=== PATIENT | female | born 1950 | race Caucasian/White ===

== ENCOUNTER 2019-07-12 12:26 | Emergency (ER) | payer MEDICARE, MEDICAID ==
[~2019-07-12] VITALS: Ht 149.9 cm; Wt 64.9 kg
[2019-07-12] MEDS ORDERED: ALBUTEROL FS 2.5 MG/3 ML VIAL.NEB ONE ×2 (12:32→13:19)
[2019-07-12] MEDS ORDERED: IPRATROPIUM NEB FS 0.5 MG/2.5 ML AMPUL.NEB ONE ×2 (12:33→13:19)
--- NOTE | 2019-07-12 12:40 | NUR ---
MOHIT, C/O SOB X SINCE WEDNESDAY. PATIENT A/OX4, COUGHING, SHORT OF BREATH, SPO2 94% IN ROOM AIR, RT AT BEDSIDE. DR. FERGUSON AT BEDSIDE FOR EVAL. NEEDS ATTENDED. KEPT COMFORTABLE.
[2019-07-12] MEDS ORDERED: predniSONE 20 MG TABLET ONE (12:49)
[2019-07-12 12:52] LABS: BASOPHILS % (AUTO) 0.4 % (0.0-2.0); EOSINOPHILS % (AUTO) 0.6 % (0.0-6.0); HEMATOCRIT 46 % (33-45); HEMOGLOBIN 15.7 g/dL (11.5-14.8); LYMPHOCYTES # (AUTO) 1.7 /CMM (0.8-4.8); LYMPHOCYTES % (AUTO) 22.8 % (20.0-44.0); MEAN CORPUSCULAR HGB CONC 34 g/dl (31.0-36.0); MEAN CORPUSCULAR VOLUME 99 fL (82-100); MONOCYTES # (AUTO) 0.8 /CMM (0.1-1.30); MONOCYTES % (AUTO) 10.8 % (2.0-12.0); NEUTROPHILS # (AUTO) 4.9 /CMM (1.8-8.9); NEUTROPHILS % (AUTO) 65.4 % (43.0-81.0); PLATELET COUNT (AUTO) 128 /CMM (150-450); RED BLOOD CELL COUNT(AUTO) 4.66 MIL/uL (4.0-5.2); WHITE BLOOD COUNT (AUTO) 7.5 K/uL (4.3-11.0)
[2019-07-12] MEDS ORDERED: ALBUTEROL FS 2.5 MG/3 ML VIAL.NEB NEB ONE ×2 (13:00)
[2019-07-12] MEDS ORDERED: IPRATROPIUM NEB FS 0.5 MG/2.5 ML AMPUL.NEB NEB ONE ×2 (13:00)
[2019-07-12] MEDS ORDERED: predniSONE 20 MG TABLET PO ONE (13:00)
[2019-07-12 13:22] LABS: CALCIUM, SERUM 9.4 mg/dL (8.5-10.1); CREATININE 0.8 mg/dL (0.6-1.3); POTASSIUM 4.3 mmol/L (3.5-5.1)
[2019-07-12 14:00] VITALS: BP 130/82
[2019-07-12] MEDS ORDERED: LEVOFLOXACIN (750 MG) 750 MG TABLET PO STA (14:04)
[2019-07-12] MEDS ORDERED: LEVOFLOXACIN (750 MG) 750 MG TABLET ONE (14:07)
--- NOTE | 2019-07-12 14:13 | NUR ---
PATIENT STATED SHE FEELS BETTER. DENIES SOB. BREATHING EVEN AND UNLABORED, NO SOB NOTED. Patient discharged to home in stable condition. Written and verbal after care instructions given. Patient verbalizes understanding of instruction.
== END 2019-07-12 14:16 | disposition home or self-care (01) ==
LOC: ER 12:28
DX: J18.9 Pneumonia, unspecified organism (principal); J45.909 Unspecified asthma, uncomplicated; R00.0 Tachycardia, unspecified; Z88.0 Allergy status to penicillin; Z88.6 Allergy status to analgesic agent; Z88.5 Allergy status to narcotic agent; Z88.2 Allergy status to sulfonamides; Z88.8 Allergy status to other drugs, medicaments and biological substances
CPT/HCPCS: 36415; 71046; 80048; 85025; 94640 ×4; 99285; J7512

== ENCOUNTER 2019-10-26 06:00 | Emergency (ER) | payer MEDICARE, MEDICAID ==
[~2019-10-26] VITALS: Ht 149.9 cm; Wt 52.2 kg
[2019-10-26 06:00] VITALS: BP 159/98
--- NOTE | 2019-10-26 06:22 | NUR ---
BIBS ON WHEELCHAIR. TO ER BED 7. AAOX4. BREATHING EVEN AND UNLABORED. USES WHEELCHAIR TO AMBULATE. C/O ORAL SORES, SORE THROAT AND PRODUCTIVE COUGH SINCE WEDNESDAY. PT VERBALIZES THAT THE PAIN IN HER MOUTH FEELING LIKE BURNING, UNDER THE TONGUE AND BUCAL AREA. PT IS ALSO C/O SOB BUT NOT IN RESP DISTRESS UPON RECEIVING PT. PT WAS NOTED WUTH BILAT WHEEZING. MD WAS AT BEDSIDE FOR EVAL. AWAITING ORDERS
[2019-10-26] MEDS ORDERED: ACETAMINOPHEN 325 MG TABLET PO ONE (06:30)
[2019-10-26] MEDS ORDERED: DEXAMETHASONE SOD PHOSPHATE 10 MG/ML VIAL IM ONE (06:30)
[2019-10-26] MEDS ORDERED: ALBUTEROL FS 2.5 MG/0.5 ML VIAL.NEB NEB ONE (06:30)
[2019-10-26] MEDS ORDERED: IPRATROPIUM NEB FS 0.5 MG/2.5 ML AMPUL.NEB NEB ONE (06:30)
[2019-10-26] MEDS ORDERED: DEXAMETHASONE SOD PHOSPHATE 10 MG/ML VIAL ONE (06:45)
[2019-10-26] MEDS ORDERED: ACETAMINOPHEN ES 500 MG TABLET ONE (06:45)
[2019-10-26] MEDS ORDERED: IPRATROPIUM NEB FS 0.5 MG/2.5 ML AMPUL.NEB ONE (06:53)
[2019-10-26] MEDS ORDERED: ALBUTEROL FS 2.5 MG/0.5 ML VIAL.NEB ONE (06:53)
--- NOTE | 2019-10-26 07:48 | NUR ---
Patient discharged to home in stable condition. Written and verbal after care instructions given. Patient verbalizes understanding of instruction. Pt left the ER on wheelchair.
== END 2019-10-26 07:49 | disposition home or self-care (01) ==
LOC: ER 06:05
DX: J45.909 Unspecified asthma, uncomplicated (principal); J06.9 Acute upper respiratory infection, unspecified; Z85.850 Personal history of malignant neoplasm of thyroid; Z60.2 Problems related to living alone; Z88.0 Allergy status to penicillin; Z88.8 Allergy status to other drugs, medicaments and biological substances; Z88.5 Allergy status to narcotic agent; Z88.2 Allergy status to sulfonamides
CPT/HCPCS: 94640; 96372; 99283; J1100

== ENCOUNTER 2020-12-29 12:12 | Emergency (ER) | payer MEDICARE, OTHER ==
[~2020-12-29] VITALS: Ht 149.9 cm; Wt 68.0 kg
[2020-12-29] MEDS ORDERED: IPRATROPIUM NEB FS 0.5 MG/2.5 ML AMPUL.NEB NEB ONE (12:30)
[2020-12-29] MEDS ORDERED: ALBUTEROL FS 2.5 MG/3 ML VIAL.NEB NEB ONE (12:30)
[2020-12-29] MEDS ORDERED: methylPREDNISolone SOD SUCC 125 MG/2ML VIAL IM ONE (12:30)
--- NOTE | 2020-12-29 12:35 | NUR ---
BIBS FROM HOME TO ER BED 5. AAOX4. SOB NOTED NON PRODUCTIVE COUGH. AMBULATES WITH A WHEELCHAIR. CAME IN FOR SOB X6 DAY. PT IS SATTING WELL @ 97% ON RA BUT PT IS NOTED WHEEZING. WAS AT THE BEDSIDE FOR EVAL. ORDERS RECEIVED, NOTED AND CARRIED OUT.
[2020-12-29] MEDS ORDERED: IPRATROPIUM NEB FS 0.5 MG/2.5 ML AMPUL.NEB ONE (12:41)
[2020-12-29] MEDS ORDERED: ALBUTEROL FS 2.5 MG/3 ML VIAL.NEB ONE (12:41)
[2020-12-29] MEDS ORDERED: methylPREDNISolone SOD SUCC 125 MG/2ML VIAL ONE (12:45)
[2020-12-29] MEDS ORDERED: METH4TAB3 PO (13:17)
[2020-12-29] MEDS ORDERED: ALBU8.5H8 INH (13:17)
--- NOTE | 2020-12-29 13:50 | NUR ---
Patient discharged to home in stable condition. Written and verbal after care instructions given. Patient verbalizes understanding of instruction.
[2020-12-29 14:45] VITALS: BP 145/120
== END 2020-12-29 13:50 | disposition home or self-care (01) ==
LOC: ER 12:15
DX: J45.909 Unspecified asthma, uncomplicated (principal); Z88.0 Allergy status to penicillin; Z88.6 Allergy status to analgesic agent; Z88.5 Allergy status to narcotic agent; Z88.2 Allergy status to sulfonamides; Z88.8 Allergy status to other drugs, medicaments and biological substances; Z60.2 Problems related to living alone
CPT/HCPCS: 71045; 94640; 94799; 96372; 99283; J2930

== ENCOUNTER 2021-05-07 20:50 | Emergency (ER) | payer MEDICARE, OTHER ==
[~2021-05-07] VITALS: Ht 149.9 cm; Wt 59.0 kg
[~2021-05-07 20:50] MED LIST: ALBU8.5H8 INH; METH4TAB3 PO
--- NOTE | 2021-05-07 21:21 | NUR ---
CALLED RT FOR BREATHING TX
[2021-05-07] MEDS: ALBUTEROL FS 2.5 MG/3 ML VIAL.NEB CONTNEB ONE (21:23)
[2021-05-07] MEDS: IPRATROPIUM NEB FS 0.5 MG/2.5 ML AMPUL.NEB NEB ONE (21:23)
[2021-05-07] MEDS ORDERED: ALBUTEROL FS 2.5 MG/3 ML VIAL.NEB ONE (21:27)
[2021-05-07] MEDS ORDERED: IPRATROPIUM NEB FS 0.5 MG/2.5 ML AMPUL.NEB ONE (21:27)
[2021-05-07] MEDS ORDERED: LEVOFLOXACIN (250MG) 250 MG TABLET ONE (21:32)
[2021-05-07] MEDS ORDERED: predniSONE 20 MG TABLET ONE (21:32)
[2021-05-07] MEDS: predniSONE 20 MG TABLET PO ONE (21:44)
[2021-05-07] MEDS: LEVOFLOXACIN (250MG) 250 MG TABLET PO SCH (21:44)
[2021-05-07 21:49] LABS: BASOPHILS % (AUTO) 0.7 % (0.0-2.0); EOSINOPHILS % (AUTO) 0.4 % (0.0-6.0); HEMATOCRIT 42 % (33-45); HEMOGLOBIN 14.2 g/dL (11.5-14.8); LYMPHOCYTES # (AUTO) 2.3 K/uL (0.8-4.8); LYMPHOCYTES % (AUTO) 42.4 % (20.0-44.0); MEAN CORPUSCULAR HGB CONC 34 g/dl (31.0-36.0); MEAN CORPUSCULAR VOLUME 100 fL (82-100); MONOCYTES # (AUTO) 0.4 K/uL (0.1-1.30); MONOCYTES % (AUTO) 7.4 % (2.0-12.0); NEUTROPHILS # (AUTO) 2.7 K/uL (1.8-8.9); NEUTROPHILS % (AUTO) 49.1 % (43.0-81.0); PLATELET COUNT (AUTO) 269 K/uL (150-450); RED BLOOD CELL COUNT(AUTO) 4.17 MIL/uL (4.0-5.2); WHITE BLOOD COUNT (AUTO) 5.5 K/uL (4.3-11.0)
[2021-05-07] MEDS ORDERED: PRED20TA PO (21:53)
[2021-05-07] MEDS ORDERED: LEVO500T90 PO (21:53)
[2021-05-07 21:58] LABS: CALCIUM, SERUM 9.7 mg/dL (8.5-10.1); CREATININE 0.8 mg/dL (0.6-1.3); POTASSIUM 4.3 mmol/L (3.5-5.1)
--- NOTE | 2021-05-07 22:17 | NUR ---
Patient discharged to home in stable condition. Rx and Written and verbal after care instructions given. Patient verbalizes understanding of instruction.
[2021-05-07 23:01] VITALS: BP 136/95
== END 2021-05-07 22:20 | disposition home or self-care (01) ==
LOC: ER 20:50
DX: J45.909 Unspecified asthma, uncomplicated (principal); Z85.828 Personal history of other malignant neoplasm of skin; Z86.73 Personal history of transient ischemic attack (TIA), and cerebral infarction without residual deficits; Z85.850 Personal history of malignant neoplasm of thyroid; Z98.890 Other specified postprocedural states; Z88.0 Allergy status to penicillin; Z88.6 Allergy status to analgesic agent; Z88.5 Allergy status to narcotic agent; Z88.2 Allergy status to sulfonamides; Z88.8 Allergy status to other drugs, medicaments and biological substances; Z60.2 Problems related to living alone; Z79.899 Other long term (current) drug therapy
CPT/HCPCS: 36415; 71045; 80048; 85025; 93005; 94640 ×2; 99285; J7512

== ENCOUNTER 2021-06-27 11:46 | Emergency (ER) | payer MEDICARE, OTHER ==
[~2021-06-27] VITALS: Ht 149.9 cm; Wt 54.4 kg
[~2021-06-27 11:46] MED LIST changes: +LEVO500T90 PO; +PRED20TA PO
--- NOTE | 2021-06-27 12:11 | NUR ---
The patient bibs for c/o head, neck and lower back pain frm glf back in may. No apparent deformity noted. The patient head, neck and lower back pain 5. Denies N/V. In room air and denies SOB. Respiration regular and unlabored. Will continue to monitor the patient.
--- NOTE | 2021-06-27 12:23 | NUR ---
TAKEN TO CT
[2021-06-27 13:55] VITALS: BP 132/80
--- NOTE | 2021-06-27 13:55 | NUR ---
Patient discharged to home in stable condition. Written and verbal after care instructions given. Patient verbalizes understanding of instruction.
== END 2021-06-27 13:56 | disposition home or self-care (01) ==
LOC: ER 11:51
DX: S09.8XXA Other specified injuries of head, initial encounter (principal); M54.50 Low back pain, unspecified; J45.909 Unspecified asthma, uncomplicated; Z90.89 Acquired absence of other organs; Z88.0 Allergy status to penicillin; Z88.6 Allergy status to analgesic agent; Z88.5 Allergy status to narcotic agent; Z88.2 Allergy status to sulfonamides; Z88.8 Allergy status to other drugs, medicaments and biological substances; Z60.2 Problems related to living alone; Z79.899 Other long term (current) drug therapy; W01.0XXA Fall on same level from slipping, tripping and stumbling without subsequent striking against object, initial encounter; Y93.89 Activity, other specified; Y92.89 Other specified places as the place of occurrence of the external cause; Y99.8 Other external cause status
CPT/HCPCS: 70450-TC; 72125-TC; 72128-TC; 72131-TC; 73630-TC

== ENCOUNTER 2021-10-30 08:45 | Emergency (ER) | payer MEDICARE, OTHER ==
[~2021-10-30] VITALS: Ht 124.5 cm; Wt 55.3 kg
--- NOTE | 2021-10-30 08:59 | NUR ---
BIBS C/O SOB X 2 DAYS, THINKS IT'S HER ASTHMA. PT ATTATCHED TO MONITOR, OXYGEN SATURATION IS 98% ON ROOM AIR. PT IS A&OX4 AND HAS HER OWN WHEELCHAIR AT BEDSIDE. PT VITALS ARE WITHIN NORMAL LIMITS. WARM BLANKET PROVIDED FOR COMFORT.
--- NOTE | 2021-10-30 09:21 | NUR ---
IV ESTABLISHED L AC 20G, LABS WERE COLLECTED AND SENT AT BEDSIDE. RAPID COVID TEST COLLECTED AND SENT.
[2021-10-30] MEDS ORDERED: ALBUTEROL FS 2.5 MG/3 ML VIAL.NEB NEB ONE (09:30)
[2021-10-30] MEDS ORDERED: methylPREDNISolone SOD SUCC 125 MG/2ML VIAL IV ONE (09:30)
[2021-10-30] MEDS ORDERED: IPRATROPIUM NEB FS 0.5 MG/2.5 ML AMPUL.NEB NEB ONE (09:30)
[2021-10-30] MEDS ORDERED: methylPREDNISolone SOD SUCC 125 MG/2ML VIAL ONE (09:38)
[2021-10-30] MEDS ORDERED: IPRATROPIUM NEB FS 0.5 MG/2.5 ML AMPUL.NEB ONE (09:42)
[2021-10-30] MEDS ORDERED: ALBUTEROL FS 2.5 MG/3 ML VIAL.NEB ONE (09:42)
--- NOTE | 2021-10-30 09:46 | NUR ---
RT AT BEDSIDE
[2021-10-30 09:50] LABS: BASOPHILS % (AUTO) 0.7 % (0.0-2.0); EOSINOPHILS % (AUTO) 0.5 % (0.0-6.0); HEMATOCRIT 42 % (33-45); HEMOGLOBIN 14.2 g/dL (11.5-14.8); LYMPHOCYTES # (AUTO) 1.7 K/uL (0.8-4.8); LYMPHOCYTES % (AUTO) 39.9 % (20.0-44.0); MEAN CORPUSCULAR HGB CONC 34 g/dl (31.0-36.0); MEAN CORPUSCULAR VOLUME 99 fL (82-100); MONOCYTES # (AUTO) 0.4 K/uL (0.1-1.30); MONOCYTES % (AUTO) 8.5 % (2.0-12.0); NEUTROPHILS # (AUTO) 2.1 K/uL (1.8-8.9); NEUTROPHILS % (AUTO) 50.4 % (43.0-81.0); PLATELET COUNT (AUTO) 257 K/uL (150-450); RED BLOOD CELL COUNT(AUTO) 4.21 MIL/uL (4.0-5.2); WHITE BLOOD COUNT (AUTO) 4.2 K/uL (4.3-11.0)
--- NOTE | 2021-10-30 09:50 | NUR ---
X RAY AT BEDSIDE
[2021-10-30 10:33] LABS: CALCIUM, SERUM 9.7 mg/dL (8.5-10.1); CARBON DIOXIDE 29 mmol/L (21-32); CHLORIDE 106 mmol/L (98-107); CREATININE 0.6 mg/dL (0.6-1.3); GLUCOSE 96 mg/dL (74-106); POTASSIUM 4.8 mmol/L (3.5-5.1); SODIUM SERUM 142 mmol/L (136-145); UREA NITROGEN, BLOOD 15 mg/dL (7-18)
[2021-10-30] MEDS ORDERED: PRED50TA PO (11:36)
--- NOTE | 2021-10-30 12:40 | NUR ---
Patient discharged to home in stable condition. Written and verbal after care instructions given. Patient verbalizes understanding of instruction.
--- NOTE | 2021-10-30 12:40 | NUR ---
IV removed. Catheter intact and site benign. Pressure and 4x4 applied to site. No bleeding noted.
[2021-10-30 12:44] LABS: BILIRUBIN,DIRECT 0.1 mg/dL (0.0-0.2); BILIRUBIN,TOTAL 0.5 mg/dL (0.2-1.0)
[2021-10-30 12:45] LABS: ALANINE AMINOTRANSFERASE 54 U/L (12-78); ALBUMIN 3.4 g/dL (3.4-5.0); ALKALINE PHOSPHATASE 122 U/L (46-116); ASPARTATE AMINOTRANSFERASE 36 U/L (15-37)
[2021-10-30 12:46] LABS: TOTAL PROTEIN, SERUM 7.6 g/dL (6.4-8.2)
[2021-10-30 13:14] VITALS: BP 126/74
[2021-11-01 14:08] LABS: ABG BASE EXCESS -2.9 mmol/L; ABG PCO2 40.2 mmHg (35.0-45.0); ABG PH 7.362 (7.350-7.450); ABG PO2 73.7 mmHg (75.0-100.0); COHb 0.9 % (0.5-1.5); MetHb 0.3 % (0.0-1.5); O2Hb 93.9 % (94.0-97.0); SITE, ABG Right Brachial; VENT MODE, BG RA 21%
== END 2021-10-30 12:40 | disposition home or self-care (01) ==
LOC: ER 08:51
DX: Z20.822 Contact with and (suspected) exposure to COVID-19 (principal); J45.901 Unspecified asthma with (acute) exacerbation; R94.31 Abnormal electrocardiogram [ECG] [EKG]; Z88.0 Allergy status to penicillin; Z88.2 Allergy status to sulfonamides; Z88.8 Allergy status to other drugs, medicaments and biological substances; E89.0 Postprocedural hypothyroidism; Z79.890 Hormone replacement therapy; Z85.850 Personal history of malignant neoplasm of thyroid; Z87.820 Personal history of traumatic brain injury; Z99.3 Dependence on wheelchair
CPT/HCPCS: 36415; 36600; 71045; 80048; 80076; 82803; 83880; 84484; 85025; 87426; 93005; 94640; 94799; 96374; 99285; J2930; C9803

== ENCOUNTER → 2021-12-31 | Emergency (ER) | payer MEDICARE, OTHER ==
[~2021-12-31] VITALS: Ht 149.9 cm; Wt 59.0 kg
[~2021-12-31] MED LIST changes: +ALBUTEROL FS 2.5 MG/3 ML VIAL.NEB CONTNEB ONE; +ALBUTEROL FS 2.5 MG/3 ML VIAL.NEB NEB ONE; +ALBUTEROL FS 2.5 MG/3 ML VIAL.NEB ONE; +PRED50TA PO; +predniSONE 20 MG TABLET ONE; +predniSONE 20 MG TABLET PO ONE
--- NOTE | 2021-12-31 19:45 | NUR ---
BIBS C/O SOB X FEW DAYS R/T ASTHMA. "RAN OUT OF NEBULIZER". PATIENT SATTING AT 99% ON ROOM AIR. IN BED 12 ON MONITOR AND POX, AWAITING MD TORRES.
--- NOTE | 2021-12-31 20:35 | NUR ---
RT VERIFIED WITH MD REGARDING ALBUTEROL DUE TO DUPLICATE ON eMAR
--- NOTE | 2021-12-31 20:39 | NUR ---
STREP DONE AND SENT TO LAB
[2021-12-31 22:11] VITALS: BP 116/82
--- NOTE | 2021-12-31 22:18 | NUR ---
Patient discharged to home in stable condition. RX,Written and verbal after care instructions given. Patient verbalizes understanding of instruction.
== END | disposition home or self-care (01) ==
LOC: ER 19:21
DX: J45.909 Unspecified asthma, uncomplicated (principal); E89.0 Postprocedural hypothyroidism; Z88.0 Allergy status to penicillin; Z88.6 Allergy status to analgesic agent; Z88.5 Allergy status to narcotic agent; Z88.2 Allergy status to sulfonamides; Z88.1 Allergy status to other antibiotic agents; Z88.8 Allergy status to other drugs, medicaments and biological substances; Z60.2 Problems related to living alone; Z79.899 Other long term (current) drug therapy
CPT/HCPCS: 87070; 87880; 94640; 99285; J7512; 86403-TC

== ENCOUNTER 2023-01-07 08:15 | Emergency (ER) | payer MEDICARE, OTHER ==
[~2023-01-07] VITALS: Ht 149.9 cm; Wt 45.4 kg
[~2023-01-07 08:15] MED LIST changes: -ALBUTEROL FS 2.5 MG/3 ML VIAL.NEB CONTNEB ONE; -ALBUTEROL FS 2.5 MG/3 ML VIAL.NEB NEB ONE; -ALBUTEROL FS 2.5 MG/3 ML VIAL.NEB ONE; -predniSONE 20 MG TABLET ONE; -predniSONE 20 MG TABLET PO ONE
--- NOTE | 2023-01-07 08:33 | NUR ---
BIB CAREGIVER C/O SHORTNESS OF BREATH, COUGH WITH MUCUS, AND "SWOLLEN TONGUE" X2 DAYS. PT HAS HX OF ASTHMA. ATTACHED TO MONITOR, VOTALS ARE WITHIN NORMAL LIMITS, SATTING AT 94% ON ROOM AIR. AWAITING MD TORRES.
[2023-01-07] MEDS ORDERED: ACETAMINOPHEN ES 500 MG TABLET ONE (08:52)
[2023-01-07] MEDS ORDERED: predniSONE 20 MG TABLET ONE (08:52)
--- NOTE | 2023-01-07 08:59 | NUR ---
RESPIRATORY AT BEDSIDE FOR TREATMENT
[2023-01-07] MEDS ORDERED: predniSONE 20 MG TABLET PO ONE (09:00)
[2023-01-07] MEDS ORDERED: ACETAMINOPHEN ES 500 MG TABLET PO ONE (09:00)
[2023-01-07] MEDS ORDERED: IPRATROPIUM NEB FS 0.5 MG/2.5 ML AMPUL.NEB NEB ONE (09:00)
[2023-01-07] MEDS ORDERED: ALBUTEROL FS 2.5 MG/3 ML VIAL.NEB CONTNEB ONE (09:00)
[2023-01-07] MEDS ORDERED: IPRATROPIUM NEB FS 0.5 MG/2.5 ML AMPUL.NEB ONE (09:02)
[2023-01-07] MEDS ORDERED: ALBUTEROL FS 2.5 MG/3 ML VIAL.NEB ONE (09:02)
[2023-01-07] MEDS ORDERED: PRED20TA PO (09:58)
--- NOTE | 2023-01-07 10:02 | NUR ---
Patient discharged to home in stable condition. Written and verbal after care instructions given. Patient verbalizes understanding of instruction.
--- NOTE | 2023-01-07 10:04 | NUR ---
Hema gomez in ED - 01/07/23 at 1005 by MIGUEL Patient discharged to home in stable condition. Written and verbal after care instructions given. Patient verbalizes understanding of instruction.
[2023-01-07 10:06] VITALS: BP 134/88
== END 2023-01-07 10:06 | disposition home or self-care (01) ==
LOC: ER 08:33
DX: J45.909 Unspecified asthma, uncomplicated (principal); Z90.89 Acquired absence of other organs; Z79.899 Other long term (current) drug therapy; Z88.0 Allergy status to penicillin; Z88.1 Allergy status to other antibiotic agents; Z88.2 Allergy status to sulfonamides; Z88.5 Allergy status to narcotic agent
CPT/HCPCS: 99285; 94640; J7512

== ENCOUNTER 2023-02-24 07:53 | Emergency (ER) | payer MEDICARE, OTHER ==
[~2023-02-24] VITALS: Ht 149.9 cm; Wt 56.7 kg
--- NOTE | 2023-02-24 08:15 | NUR ---
C/O SOB FROM COUGH AND CONGESTION X 3 DAYS. CLAIMS SHE HAS A LOW IMMUNE SYSTEM. AOX4 ON WHEELCHAIR
--- NOTE | 2023-02-24 08:20 | NUR ---
DR MEZA AT BEDSIDE FOR EVAL
--- NOTE | 2023-02-24 08:24 | NUR ---
22g inserted at LAC, BLD DRAWN, SENT TO LAB
[2023-02-24] MEDS ORDERED: methylPREDNISolone SOD SUCC 125 MG/2ML VIAL IV ONE (08:30)
[2023-02-24] MEDS ORDERED: IPRATROPIUM NEB FS 0.5 MG/2.5 ML AMPUL.NEB NEB ONE (08:30)
[2023-02-24] MEDS ORDERED: ALBUTEROL FS 2.5 MG/3 ML VIAL.NEB CONTNEB ONE (08:30)
[2023-02-24] MEDS ORDERED: dexaMETHasone SOD PHOSPHATE 10 MG/ML VIAL ONE (08:37)
--- NOTE | 2023-02-24 08:43 | NUR ---
DECADRON 10MG GIVEN IVP
[2023-02-24 08:57] LABS: BASOPHILS % (AUTO) 0.4 % (0.0-2.0); EOSINOPHILS % (AUTO) 0.3 % (0.0-6.0); HEMATOCRIT 44 % (33-45); HEMOGLOBIN 14.2 g/dL (11.5-14.8); LYMPHOCYTES # (AUTO) 1.5 K/uL (0.8-4.8); LYMPHOCYTES % (AUTO) 31.7 % (20.0-44.0); MEAN CORPUSCULAR HGB CONC 33 g/dl (31.0-36.0); MEAN CORPUSCULAR VOLUME 101 fL (82-100); MONOCYTES # (AUTO) 0.5 K/uL (0.1-1.30); MONOCYTES % (AUTO) 10.4 % (2.0-12.0); NEUTROPHILS # (AUTO) 2.7 K/uL (1.8-8.9); NEUTROPHILS % (AUTO) 57.2 % (43.0-81.0); PLATELET COUNT (AUTO) 302 K/uL (150-450); RED BLOOD CELL COUNT(AUTO) 4.32 MIL/uL (4.0-5.2); WHITE BLOOD COUNT (AUTO) 4.8 K/uL (4.3-11.0)
[2023-02-24] MEDS ORDERED: dexaMETHasone SOD PHOSPHATE 10 MG/ML VIAL IV ONE (09:00)
[2023-02-24] MEDS ORDERED: IPRATROPIUM NEB FS 0.5 MG/2.5 ML AMPUL.NEB ONE (09:11)
[2023-02-24] MEDS ORDERED: ALBUTEROL FS 2.5 MG/3 ML VIAL.NEB ONE (09:11)
--- NOTE | 2023-02-24 09:11 | NUR ---
RT AT BEDSIDE FOR BREATHING TREATMENT
[2023-02-24 09:19] LABS: CALCIUM, SERUM 9.9 mg/dL (8.5-10.1); CARBON DIOXIDE 26 mmol/L (21-32); CHLORIDE 105 mmol/L (98-107); CREATININE 0.7 mg/dL (0.6-1.3); GLUCOSE 97 mg/dL (74-106); POTASSIUM 4.5 mmol/L (3.5-5.1); SODIUM SERUM 139 mmol/L (136-145); UREA NITROGEN, BLOOD 12 mg/dL (7-18)
[2023-02-24 09:23] LABS: ALANINE AMINOTRANSFERASE 39 U/L (12-78); ALBUMIN 3.7 g/dL (3.4-5.0); ALKALINE PHOSPHATASE 127 U/L (46-116); ASPARTATE AMINOTRANSFERASE 19 U/L (15-37); BILIRUBIN,DIRECT 0.1 mg/dL (0.0-0.2); BILIRUBIN,TOTAL 0.4 mg/dL (0.2-1.0); TOTAL PROTEIN, SERUM 8.5 g/dL (6.4-8.2)
[2023-02-24] MEDS ORDERED: PRED20TA PO (10:13)
--- NOTE | 2023-02-24 11:12 | NUR ---
IV removed. Catheter intact and site benign. Pressure and 4x4 applied to site. No bleeding noted.
[2023-02-24 11:13] VITALS: BP 125/89
== END 2023-02-24 11:13 | disposition home or self-care (01) ==
LOC: ER 08:06
DX: J45.901 Unspecified asthma with (acute) exacerbation (principal); J06.9 Acute upper respiratory infection, unspecified; R05.9 Cough, unspecified; R09.81 Nasal congestion; Z88.0 Allergy status to penicillin; Z88.2 Allergy status to sulfonamides; Z88.8 Allergy status to other drugs, medicaments and biological substances; Z79.51 Long term (current) use of inhaled steroids; Z79.899 Other long term (current) drug therapy
CPT/HCPCS: 99285; 96374; 71045; 93005; 85025; 80048; 87040 ×2; 83605; 80076; 36415; 84484; 83880; 94640; J1100

== ENCOUNTER 2023-10-25 08:00 | Emergency (ER) | payer MEDICARE, OTHER ==
[~2023-10-25] VITALS: Ht 149.9 cm; Wt 54.4 kg
[2023-10-25] MEDS ORDERED: NEBU-171 MC (08:21)
[2023-10-25 09:17] VITALS: BP 141/105; TEMP 98.4; O2SAT 97
== END 2023-10-25 08:40 | disposition home or self-care (01) ==
LOC: ER 08:07
DX: J45.901 Unspecified asthma with (acute) exacerbation (principal); Z88.0 Allergy status to penicillin; Z88.5 Allergy status to narcotic agent; Z88.8 Allergy status to other drugs, medicaments and biological substances; Z60.2 Problems related to living alone

== ENCOUNTER 2025-01-24 06:29 | Emergency (ER) | payer MEDICARE, OTHER ==
[~2025-01-24] VITALS: Ht 154.9 cm; Wt 70.8 kg
[~2025-01-24 06:29] MED LIST changes: +NEBU-171 MC
[2025-01-24 06:42] VITALS: BP 151/93; TEMP 98.4; O2SAT 96
[2025-01-24] MEDS ORDERED: CLOT15CR27 TP (07:12)
[2025-01-24] MEDS ORDERED: VALA100026 PO (07:12)
== END 2025-01-24 07:27 | disposition home or self-care (01) ==
LOC: ER 06:41
DX: B37.2 Candidiasis of skin and nail (principal); B37.89 Other sites of candidiasis; D84.821 Immunodeficiency due to drugs; J45.909 Unspecified asthma, uncomplicated; Z79.52 Long term (current) use of systemic steroids; Z88.0 Allergy status to penicillin; Z88.1 Allergy status to other antibiotic agents; Z88.2 Allergy status to sulfonamides; Z88.5 Allergy status to narcotic agent; Z88.6 Allergy status to analgesic agent

== ENCOUNTER 2025-04-19 08:31 | Emergency (ER) | payer MEDICARE, OTHER ==
[~2025-04-19] VITALS: Ht 149.9 cm; Wt 45.4 kg
[~2025-04-19 08:31] MED LIST changes: +CLOT15CR27 TP; +VALA100026 PO
[2025-04-19] MEDS: ALBUTEROL FS 2.5 MG/3 ML VIAL.NEB NEB ONE (09:46)
[2025-04-19] MEDS ORDERED: ALBUTEROL FS 2.5 MG/3 ML VIAL.NEB ONE (09:48)
[2025-04-19] MEDS ORDERED: TDAP [DIPH/PERTUSSIS/TET] 0.5 ML VIAL IM ONE (10:14)
[2025-04-19] MEDS: TDAP [DIPH/PERTUSSIS/TET] 0.5 ML VIAL IM ONE (10:22)
[2025-04-19 10:28] VITALS: BP 131/83; TEMP 98.6; O2SAT 98
== END 2025-04-19 10:34 | disposition home or self-care (01) ==
LOC: ER 08:33
DX: B37.2 Candidiasis of skin and nail (principal); E84.9 Cystic fibrosis, unspecified; J45.909 Unspecified asthma, uncomplicated; Z79.52 Long term (current) use of systemic steroids; Z79.624 Long term (current) use of inhibitors of nucleotide synthesis; Z88.0 Allergy status to penicillin; Z88.1 Allergy status to other antibiotic agents; Z88.2 Allergy status to sulfonamides; Z88.5 Allergy status to narcotic agent; Z88.6 Allergy status to analgesic agent; Z60.2 Problems related to living alone
CPT/HCPCS: 90715